=== PATIENT | male | born 1975 | race Caucasian/White ===

== ENCOUNTER → 2023-02-01 08:09 | Outpatient (BNVA) | payer OTHER, SELFPAY | PROVIDERS: Visit Provider Internal Medicine | DX: S01.01XA Laceration without foreign body of scalp, initial encounter (principal); W22.09XA Striking against other stationary object, initial encounter; W11.XXXA Fall on and from ladder, initial encounter | CPT/HCPCS: 99202; 99212 ==

== ENCOUNTER → 2023-11-25 08:55 | Outpatient (BNVA) | payer OTHER, SELFPAY | PROVIDERS: Visit Provider Physician Assistant Medical | DX: S39.012A Strain of muscle, fascia and tendon of lower back, initial encounter (principal); X50.0XXA Overexertion from strenuous movement or load, initial encounter | CPT/HCPCS: 99203 ==

== ENCOUNTER → 2023-11-28 11:28 | Outpatient (BNVA) | payer OTHER, SELFPAY | PROVIDERS: Visit Provider Physician Assistant Medical | DX: S39.012A Strain of muscle, fascia and tendon of lower back, initial encounter (principal); X50.0XXA Overexertion from strenuous movement or load, initial encounter | CPT/HCPCS: 99213 ==

== ENCOUNTER → 2023-12-23 10:58 | Outpatient (BNVA) | payer OTHER, SELFPAY | PROVIDERS: Visit Provider Physician Assistant Medical | DX: S39.012D Strain of muscle, fascia and tendon of lower back, subsequent encounter (principal); X50.0XXD Overexertion from strenuous movement or load, subsequent encounter | CPT/HCPCS: 99213 ==

== ENCOUNTER → 2024-01-13 10:48 | Outpatient (BNVA) | payer OTHER, SELFPAY | PROVIDERS: Visit Provider Physician Assistant Medical | DX: M79.604 Pain in right leg (principal); M54.50 Low back pain, unspecified | CPT/HCPCS: 99213 ==

== ENCOUNTER → 2024-02-03 09:19 | Outpatient (BNVA) | payer OTHER, SELFPAY | PROVIDERS: Visit Provider Internal Medicine | DX: S39.012D Strain of muscle, fascia and tendon of lower back, subsequent encounter (principal); X50.0XXD Overexertion from strenuous movement or load, subsequent encounter | CPT/HCPCS: 99213 ==

== ENCOUNTER 2024-02-13 10:01 | Outpatient (AMB) | payer OTHER, SELFPAY ==
[2024-02-13 10:14] VITALS: BP 134/86; PULSE 104; O2SAT 98
--- NOTE | 2024-02-13 10:14 | A.OFFVIS_ITS ---
Vital Signs 02/13/24 10:14 Weight 174 lb BP 134/86 Blood Pressure Location Rt brachial Position Sitting Pulse 104 H Pulse Source Pulse Oximeter Pulse Oximetry (%) 98 Oxygen Delivery Method Room Air Intake Visit Reasons: Right side low back pain Allergies Bee stings Allergy (Unknown, Uncoded 02/13/24 10:14) anaphylaxis Medication List - Last Reconciled 02/13/24 by Chelsea Kong tamsulosin 0.4 mg PO DAILY HPI Comments Details: Alejandro is a very pleasant 48-year-old male who presents the office today for evaluation and management of his right lower back Recent MRI reviewed, results as per below He has been suffering with this pain for 3 months. Injured at work, he was bringing a ladder down from the top of his work van Endorses pain over right PSIS with occasional radiation down the right thigh. Pain is worse with sitting for extended period of time, standing for extended period time and climbing stairs or ladder Pain improves with frequent position changes Pain today is rated as a 3/10 He completed physical therapy 2 weeks ago. States he did get some relief but ultimately stopped noticing benefit. He continues with home exercise program. Has tried Tylenol, ibuprofen, heat all without extended relief of his pain Denies red flag symptoms including new loss of bowel, bladder or saddle anesth esia. Denies lower extremity weakness, numbness In terms of muscle damage condition is described as aching Pain is negatively impacting patient's enjoyment of life, general activity, working, recreational activity Denies current use of anticoagulant Denies implantable devices, pacemaker defibrillator Review of Systems Const All systems reviewed & are unremarkable except as noted in HPI and below Physical Exam Vital Signs: Last Vital Signs Pulse 104 H 02/13/24 10:14 BP 134/86 02/13/24 10:14 Pulse Ox 98 02/13/24 10:14 Oxygen Delivery Method Room Air 02/13/24 10:14 General: awake, alert, oriented. Answers questions appropriately. Fully engaged in examination. Skin: warm, dry, intact HEENT: Normocephalic. Hearing intact. Cardiac: External chest normal in appearance. Respiratory: No cough, audible wheezing or stridor. Abdomen: without gross distension. MS: No obvious swelling or deformities. Able to stand on bilateral tiptoes and bilateral heels.? Able to transition from sit to stand unassisted. Ambulates with bilaterally normal heel strike and toe off Nontender over midline lumbar vertebrae Tenderness over right PSIS KELSEY positive on the right Gaenslen positive the right Thigh thrust positive the right SLR negative bilaterally Neurological: Oriented to person, place, time and situation. Thought process intact. No gait abnormalities appreciated. Psychiatric: Appropriate mood and affect. Good judgment and insight. Results Reviewed Results Reviewed: 01/28/24 FINDINGS: There is normal alignment of lumbar vertebral bodies. The vertebral bodies are of normal height and signal intensity. There is mild loss of intervertebral disc space height and loss of normal T2 hyperintensity of the L5-S1 disc material. The remaining intervertebral disc spaces are maintained. No acute paraspinal abnormality is identified. Conus and cauda equina of normal appearance. Conus tip L1. Examination through the L1-L2, L2-L3, L3-L4 and L4-L5 intervertebral levels without central stenosis or foraminal narrowing. Examination through the L5-S1 intervertebral level revealing a small posterior disc osteophyte with a leftward predominance. There is no central minimal LEFT foraminal narrowing. No significant RIGHT foraminal narrowing. IMPRESSION: No findings of lumbar fracture or listhesis. There is mild loss of intervertebral disc space height and loss of normal T2 hyperintensity of the L5-S1 disc material. L5-S1 intervertebral level revealing a small posterior disc osteophyte with a leftward predominance. Minimal LEFT foraminal narrowing. No significant central stenosis or RIGHT foraminal narrowing. Assessment & Plan Assessment & Plan (1) Sacroiliac joint dysfunction of right side: Code(s): M53.3 - Sacrococcygeal disorders, not elsewhere classified Category: Medical Plan Alejandro presented to the office today for evaluation management of his chronic right lower back pain History, physical exam and provocative testing consistent with right sacroiliac joint dysfunction Patient has exhausted conservative therapy including PT, home exercise program, Tylenol, nonsteroidal anti-inflammatory medications, heat all without improvement of symptoms Discussed options for treatment including diagnostic interventional testing, steroid injections, peripheral nerve stimulation with Sprint, RFA and more permanent neuromodulation. Will schedule for fluoroscopy guided diagnostic right sacroiliac joint injection with local anesthetic. All questions and concerns have been answered and patient agrees with the plan. Follow up after injections and sooner if needed. Coding Level of Care Code New Pt Level 4 (16234) Complex EM visit Add On G2211 Diagnoses Sacroiliac joint dysfunction of right side M53.3
== END 2024-02-13 10:44 | disposition home or self-care (01) ==
PROVIDERS: Visit Provider Registered Nurse Emergency
DX: M53.3 Sacrococcygeal disorders, not elsewhere classified (principal)
CPT/HCPCS: 99204; G2211

== ENCOUNTER → 2024-02-13 10:01 | Outpatient (BNVA) | payer OTHER, SELFPAY | PROVIDERS: Visit Provider Registered Nurse Emergency | DX: M53.3 Sacrococcygeal disorders, not elsewhere classified (principal) | CPT/HCPCS: 99202 ==

== ENCOUNTER → 2024-02-24 09:32 | Outpatient (BNVA) | payer OTHER, SELFPAY | PROVIDERS: Visit Provider Physician Assistant Medical | DX: S39.012D Strain of muscle, fascia and tendon of lower back, subsequent encounter (principal); X50.0XXD Overexertion from strenuous movement or load, subsequent encounter; M25.78 Osteophyte, vertebrae; M46.1 Sacroiliitis, not elsewhere classified | CPT/HCPCS: 99213 ==

== ENCOUNTER → 2024-03-17 15:32 | Outpatient (BNVA) | payer OTHER, SELFPAY | PROVIDERS: Visit Provider Physician Assistant Medical | DX: M46.1 Sacroiliitis, not elsewhere classified (principal) | CPT/HCPCS: 99213 ==

== ENCOUNTER → 2024-03-20 14:32 | Outpatient (BNVA) | payer OTHER, SELFPAY | PROVIDERS: Visit Provider Physician Assistant Medical | DX: M46.1 Sacroiliitis, not elsewhere classified (principal) | CPT/HCPCS: 99213 ==

== ENCOUNTER → 2024-03-25 14:29 | Outpatient (BNVA) | payer OTHER, SELFPAY | PROVIDERS: Visit Provider Physician Assistant Medical | DX: M99.04 Segmental and somatic dysfunction of sacral region (principal) | CPT/HCPCS: 99213 ==

== ENCOUNTER → 2024-03-27 14:23 | Outpatient (BNVA) | payer OTHER, SELFPAY | PROVIDERS: Visit Provider Physician Assistant Medical | DX: M99.04 Segmental and somatic dysfunction of sacral region (principal) | CPT/HCPCS: 99213 ==

== ENCOUNTER → 2024-03-31 14:30 | Outpatient (BNVA) | payer OTHER, SELFPAY | PROVIDERS: Visit Provider Physician Assistant Medical | DX: M46.1 Sacroiliitis, not elsewhere classified (principal) | CPT/HCPCS: 99213 ==

== ENCOUNTER 2024-04-07 06:09 | Outpatient (REF) | payer OTHER, SELFPAY | END 2024-04-07 06:10 | disposition home or self-care (01) | LOC: CF 06:09 | PROVIDERS: Visit Provider Anesthesiology | DX: M53.3 Sacrococcygeal disorders, not elsewhere classified (principal) | CPT/HCPCS: 27096; J2003; J2795; Q9967 ==

== ENCOUNTER 2024-04-07 08:26 | Outpatient (AMB) | payer OTHER, SELFPAY ==
--- OUTSIDE RECORDS SUMMARY | 2024-04-07 08:27 | XMS_ITS | Continuity of Care Document ---
Author Organization [facility] [address] Address [address] [place] [address]- Care Team Providers Care Wheel Presser Name Role Phone Not on Staff, PCP Primary Care Physician Unavail able Encounter [facility] Date(s): 10/12/21 - 11/11/21 [facility] [address] [place] [address]- Allergies, Adverse Reactions, Alerts Substance Reaction Severity Status Bee Stings Active Medications Zofran 4 mg oral tablet 1 tablet = 4 mg, By Mouth, Every 8 hours, PRN Nausea & Vomiting, # 20 tablet, 0 Refills, Maintenance, 05/27/17 23:03:18, Tablet Start Date: 05/27/17 Stop Date: 06/06/17 Status: Ordered Problem List Condition Effective Dates Status Health Status Inform ant Attention deficit disorder ( ADD) in adult(Confirmed) Active Major depressive disorder, r ecurrent episode, moderate with anxious distress(Confirmed) Active Social History Social History Type Response Smoking Status 5-9 cigarettes (betw een 1/4 to 1/2 pack)/day in last 30 days; Use: Vapes entered on: 08/25/18 Sex
--- NOTE | 2024-04-07 08:35 | MHC.OFFVIS ---
Vital Signs 04/07/24 08:55 04/07/24 09:28 BP 137/84 145/88 H Blood Pressure Location Lt brachial Lt brachial Position Sitting Sitting Pulse 91 67 Pulse Source Pulse Oximeter Pulse Oximeter Pulse Oximetry (%) 99 100 Oxygen Delivery Method Room Air Room Air Intake Visit Reasons: RIGHT DIAGNOSTIC SIJ INJECTION Allergies Bee stings Allergy (Unknown, Uncoded 02/13/24 10:14) anaphylaxis Physical Exam Vital Signs: Last Vital Signs Pulse 67 04/07/24 09:28 BP 145/88 H 04/07/24 09:28 Pulse Ox 100 04/07/24 09:28 Oxygen Delivery Method Room Air 04/07/24 09:28 Assessment & Plan Assessment & Plan (1) Sacroiliac joint dysfunction of right side: Code(s): M53.3 - Sacrococcygeal disorders, not elsewhere classified Category: Medical Plan Right diagnostic sacroiliac joint injection Informed consent was explained thoroughly to the patient.? All questions about benefits and risks for the procedure were answered. Patient came to the operating room and was positioned prone on the operating table with the pillow under the pelvis.? The lower back and buttocks of the patient were prepped with ChloraPrep prepped and draped with sterile utility towels.? Sterilely draped C-arm was brought over the operating field and sq picture of patient's pelvis was demonstrated on the screen.? For the right joint tilting C-arm contralateral to the site of the joint the most posterior portion of the joints was superimposed with anterior silhouette of the joint.? Skin was injected in the projection of the joint slightly medial to the location of the joint with 25 gauge 1/2 inch needle using local lidocaine 2% . After that 22 gauge 3 and 1/2 inch needle was driven to the right joint in tunnel vision fashion.? When needle entered the joint capsule injection of the contrast was performed demonstrating intra-articular and minimally periarticular spread of the contrast.? After that 5 cc. of ropivacaine 0.5% was injected into the right joint.? Upon completion of the injections the needles were removed .? Sterile dressing was applied.? Upon completion of the injection patient was taken outside of the operating room to the recovery room where recovered uneventful Orders: Orders FL guidance in treatment room Today M53.3 - Sacrococcygeal disorders, not elsewhere classified Coding Level of Care Code Procedure Only Diagnoses Sacroiliac joint dysfunction of right side M53.3
[2024-04-07 08:55] VITALS: BP 137/84; PULSE 91; O2SAT 99
[2024-04-07 09:28] VITALS: BP 145/88; PULSE 67; O2SAT 100
== END 2024-04-07 09:32 | disposition home or self-care (01) ==
LOC: HO.PMCPRC 08:26
PROVIDERS: Visit Provider Anesthesiology
DX: M53.3 Sacrococcygeal disorders, not elsewhere classified (principal)
CPT/HCPCS: 27096

== ENCOUNTER 2024-04-10 12:52 | Outpatient (AMB) | payer OTHER, SELFPAY ==
--- NOTE | 2024-04-10 12:58 | A.OFFVIS_ITS ---
Vital Signs 04/10/24 13:03 Weight 176 lb BP 138/87 Blood Pressure Location Lt brachial Position Sitting Pulse 71 Pulse Source Pulse Oximeter Pulse Oximetry (%) 98 Oxygen Delivery Method Room Air Intake Visit Reasons: RIGHT DIAGNOSTIC SIJ INJECTION Intake Note: Pain today 09/12 Spa Consultant Required: No Accompanied by: Self / Same As Patient Allergies Bee stings Allergy (Unknown, Uncoded 02/13/24 10:14) anaphylaxis HPI Comments Details: Patient presents back to the office today for follow-up, 3 days status post diagnostic right sacroiliac joint injection He reports 75% pain relief since the injection with improvement in functional ability Reports he is able to get up and move around better with less pain. Denies any untoward effects of the injection with does state it was uncomfortable.. He would like to proceed with therapeutic injection, he would like Ativan for this injection. Prior: Alejandro is a very pleasant 48-year-old male who presents the office today for evaluation and management of his right lower back Recent MRI reviewed, results as per below He has been suffering with this pain for 3 months. Injured at work, he was bringing a ladder down from the top of his work van Endorses pain over right PSIS with occasional radiation down the right thigh. Pain is worse with sitting for extended period of time, standing for extended period time and climbing stairs or ladder Pain improves with frequent position changes Pain today is rated as a 3/10 He completed physical therapy 2 weeks ago. States he did get some relief but ultimately stopped noticing benefit. He continues with home exercise program. Has tried Tylenol, ibuprofen, heat all without extended relief of his pain Denies red flag symptoms including new loss of bowel, bladder or saddle anesthesia. Denies lower extremity weakness, numbness In terms of muscle damage condition is described as aching Pain is negatively impacting patient's enjoyment of life, general activity, working, recreational activity Denies current use of anticoagulant Denies implantable devices, pacemaker defibrillator Review of Systems Const All systems reviewed & are unremarkable except as noted in HPI and below Physical Exam Vital Signs: Last Vital Signs Pulse 71 04/10/24 13:03 BP 138/87 04/10/24 13:03 Pulse Ox 98 04/10/24 13:03 Oxygen Delivery Method Room Air 04/10/24 13:03 General: awake, alert, oriented. Answers questions appropriately. Fully engaged in examination. Skin: warm, dry, intact HEENT: Normocephalic. Hearing intact. Cardiac: External chest normal in appearance. Respiratory: No cough, audible wheezing or stridor. Abdomen: without gross distension. MS: No obvious swelling or deformities. Able to transition from sit to stand unassisted. Ambulates with bilaterally normal heel strike and toe off Neurological: Oriented to person, place, time and situation. Thought process intact. No gait abnormalities appreciated. Psychiatric: Appropriate mood and affect. Good judgment and insight. Results Reviewed Results Reviewed: 01/28/24 FINDINGS: There is normal alignment of lumbar vertebral bodies. The vertebral bodies are of normal height and signal intensity. There is mild loss of intervertebral disc space height and loss of normal T2 hyperintensity of the L5-S1 disc material. The remaining intervertebral disc spaces are maintained. No acute paraspinal abnormality is identified. Conus and cauda equina of normal appearance. Conus tip L1. Examination through the L1-L2, L2-L3, L3-L4 and L4-L5 intervertebral levels without central stenosis or foraminal narrowing. Examination through the L5-S1 intervertebral level revealing a small posterior disc osteophyte with a leftward predominance. There is no central minimal LEFT foraminal narrowing. No significant RIGHT foraminal narrowing. IMPRESSION: No findings of lumbar fracture or listhesis. There is mild loss of intervertebral disc space height and loss of normal T2 hyperintensity of the L5-S1 disc material. L5-S1 intervertebral level revealing a small posterior disc osteophyte with a leftward predominance. Minimal LEFT foraminal narrowing. No significant central stenosis or RIGHT foraminal narrowing. Assessment & Plan Assessment & Plan (1) Sacroiliac joint dysfunction of right side: Code(s): M53.3 - Sacrococcygeal disorders, not elsewhere classified Category: Medical Plan Alejandro presented to the office today for follow-up, 3 days status post diagnostic right sacroiliac joint injection He reports 75% pain relief with improvement in functional mobility since the procedure. Patient has exhausted conservative therapy including PT, home exercise program, Tylenol, nonsteroidal anti-inflammatory medications, heat all without improvement of symptoms Will schedule for fluoroscopy guided therapeutic right sacroiliac joint injection with local anesthetic. Will send Ativan, 1 mg tablet to take 30 minutes prior to arrival for the procedure per patient request. All questions and concerns have been answered and patient agrees with the plan. Follow up after injection, sooner if needed. Coding Level of Care Code Est Pt Level 3 (63978) Complex EM visit Add On G2211 Diagnoses Sacroiliac joint dysfunction of right side M53.3
[2024-04-10 13:03] VITALS: BP 138/87; PULSE 71; O2SAT 98
== END 2024-04-10 13:55 | disposition home or self-care (01) ==
PROVIDERS: Visit Provider Registered Nurse Emergency
DX: M53.3 Sacrococcygeal disorders, not elsewhere classified (principal)
CPT/HCPCS: 99213; G2211

== ENCOUNTER → 2024-04-10 12:52 | Outpatient (BNVA) | payer OTHER, SELFPAY | PROVIDERS: Visit Provider Registered Nurse Emergency | DX: M53.3 Sacrococcygeal disorders, not elsewhere classified (principal); Z98.890 Other specified postprocedural states | CPT/HCPCS: 99212 ==

== ENCOUNTER → 2024-04-13 15:00 | Outpatient (BNVA) | payer OTHER, SELFPAY | PROVIDERS: Visit Provider Physician Assistant Medical | DX: M46.1 Sacroiliitis, not elsewhere classified (principal) | CPT/HCPCS: 99213 ==

== ENCOUNTER → 2024-05-11 13:18 | Outpatient (BNVA) | payer OTHER, SELFPAY | PROVIDERS: Visit Provider Physician Assistant Medical | DX: M46.1 Sacroiliitis, not elsewhere classified (principal) | CPT/HCPCS: 99213 ==

== ENCOUNTER 2024-07-07 06:26 | Outpatient (REF) | payer OTHER, SELFPAY ==
--- NOTE | ~2024-07-07 | FL_ITS ---
EXAMINATION: FL GUIDANCE ONLY HISTORY: M53.3 - Sacrococcygeal disorders, not elsewhere classified COMPARISON: None available. TECHNIQUE: Fluoroscopy time: 0.1 minutes. Cumulative Dose: 1.72 mGy. DAP: 0.0299 mGym2 Images: 2. FINDINGS: Images demonstrate a needle and contrast material in the region of the right sacroiliac joint. FL/FL guidance in treatment room IMPRESSION: Fluoroscopy during procedure. Please see procedure report for additional information. Electronically signed by: Paulo Holt MD 07/10/2024 08:56 AM CLAUDIA
== END 2024-07-07 06:27 | disposition home or self-care (01) ==
LOC: CF 06:26
PROVIDERS: Visit Provider Anesthesiology
DX: M53.3 Sacrococcygeal disorders, not elsewhere classified (principal)
CPT/HCPCS: 27096; J2003; J2795; J3301; Q9967

== ENCOUNTER 2024-07-07 08:43 | Outpatient (AMB) | payer OTHER, SELFPAY ==
--- NOTE | 2024-07-07 08:43 | MHC.OFFVIS ---
Vital Signs 07/07/24 08:50 07/07/24 09:12 BP 130/78 141/82 H Blood Pressure Location Lt brachial Lt brachial Position Sitting Sitting Pulse 73 78 Pulse Source Pulse Oximeter Pulse Oximeter Pulse Oximetry (%) 100 100 Oxygen Delivery Method Room Air Room Air Comment Pre-Op Post-Op Intake Visit Reasons: RIGHT THERAPEUTIC SIJ INJECTION/ATIVAN REQ Allergies Bee stings Allergy (Unknown, Uncoded 02/13/24 10:14) anaphylaxis Physical Exam Vital Signs: Last Vital Signs Pulse 78 07/07/24 09:12 BP 141/82 H 07/07/24 09:12 Pulse Ox 100 07/07/24 09:12 Oxygen Delivery Method Room Air 07/07/24 09:12 Assessment & Plan Assessment & Plan (1) Sacroiliac joint dysfunction of right side: Code(s): M53.3 - Sacrococcygeal disorders, not elsewhere classified Category: Medical Plan Right therapeutic sacroiliac joint injection Informed consent was explained thoroughly to the patient.? All questions about benefits and risks for the procedure were answered. Patient came to the operating room and was positioned prone on the operating table with the pillow under the abdomen. The lower back and buttocks of the patient were prepped with ChloraPrep prepped and draped with sterile utility towels.? C-arm was brought over the operating field and sq picture of patient's pelvis was demonstrated on the screen.? For the right joint tilting C-arm contralateral to the site of the joint the most posterior portion of the joints was superimposed with anterior silhouette of the joint.? Skin was injected in the projection of the joint slightly medial to the location of the joint with 25 gauge 1/2 inch needle using local lidocaine 2% .After that 22 gauge 3 and 1/2 inch needle was driven to the right joint in tunnel vision fashion.? When needle entered the joint capsule injection of the contrast was performed demonstrating intra-articular and minimally periarticular spread of the contrast.? After that 5 cc. of ropivacaine 0.5% mixed with Kenalog 40 mg was injected into the right joint.? Upon completion of the injections the needles were removed .? Sterile dressing was applied.? Upon completion of the injection patient was taken outside of the operating room to the recovery room where he recovered uneventfuly. Orders: Orders FL guidance in treatment room Today M53.3 - Sacrococcygeal disorders, not elsewhere classified Coding Level of Care Code Procedure Only Diagnoses Sacroiliac joint dysfunction of right side M53.3
[2024-07-07 08:50] VITALS: BP 130/78; PULSE 73; O2SAT 100
[2024-07-07 09:12] VITALS: BP 141/82; PULSE 78; O2SAT 100
--- OUTSIDE RECORDS SUMMARY | 2024-07-07 09:20 | XMS_ITS | Clinical Summary ---
Author Organization [facility] Address [address] [place] [address] Phone Care Team Providers Care Pest Control Technician Name Role Phone Tamy Haemed MD Primary Care Provider [phone] Allergies Active Allergy Reactions Criticality Noted Date Comments Bee Venom Protein (Honey Bee) 2023 Medications tamsulosin (FLOMAX) 0.4 mg 24 hr capsule Take 1 capsule (0.4 mg total) by mouth 1 (one) time each day. 10/29/2023 Active medical marijuana STOCK CONTROL CLERK med 1 each if needed. Active Surgical History Surgery Date Site/Laterality Comments OTHER SURGICAL HISTORY PROCEDURE: DENIES PREVIOUS SURGERY Medical History Medical History Date Comments Patient denies medical problems DX:Patient denies medical problems Anxiety Family History Medical History Relation Name Comments Diabetes Father No Known Problems Maternal Grandfather No Known Problems Maternal Grandmother No Known Problems Mother No Known Problems Paternal Grandfather No Known Problems Paternal Grandmother Other: Thyroid Cancer Sister No Known Problems Son 1 Relation Name Status Comments Father Alive Maternal Grandfather Maternal Grandmother Mother Alive Paternal Grandfather Paternal Grandmother Sister Alive Son 1 Alive Son 2 Alive Stepson, Not bi ologicaly related Social History Tobacco Use Types Packs/Day Years Used Date Smoking Tobacco: Former Cigarettes Q uit: 05/06/2017 Smokeless Tobacco: Never Alcohol Use Standard Drinks/Week Comments Yes 0 (1 standard drink = 0.6 oz pur e alcohol) Interpersonal Safety Answer Date Record ed Physical Abuse 03/18/2024 Verbal Abuse 03/18/2024 Sex and Gender Information Value Date Recorded Sex Assigned at Male 03/18/2024 1:20 PM EST Legal Sex Male 11:41 AM EDT Gender Identity Male 03/18/2024 1:20 PM EST Sexual Orientation Straight 03/18/2024 1: 20 PM EST Obstetrics History Last Filed Vital Signs Vital Sign Reading Time Taken Comments Blood Pressure 119/83 03/18/2024 2:47 PM EST Pulse 85 03/18/2024 2:47 PM EST Temperature 36.4 ??C (97.6 ??F) 03/18/2024 2:27 PM ES T Respiratory Rate 20 03/18/2024 2:47 PM EST Oxygen Saturation 99% 03/18/2024 2:47 PM EST Inhaled Oxygen Concentration - - Weight 79.4 kg (175 lb) 03/18/2024 1:41 PM EST Height 177.8 cm (5' 10 ) 03/18/2024 1:41 PM EST Body Mass Index 25.11 03/18/2024 1:41 PM EST Plan of Treatment Health Maintenance Due Date Last Done Comments Hepatitis B Vaccines (1 of 3 - 19+ 3-dose series) 12/02/1995 COVID-19 Vaccine (2023-2 5 season) 2024 Influenza Vaccine (#1) 2024 Cholesterol Screening (Lipid Panel) 02/13/2024 Depression Screening 02/13/2024 HIV Screening 02/13/2024 Hepatitis C Screening 02/13/2024 Medicare Annual Wellness Visit 02/13/2024 Social Influencers of Health Screening 02/13/2024 DTaP,Tdap,and Td Vaccines (3 - Td or Tdap) 01/24/2033 01/24/2023, 12/23/2018 Colorectal Cancer Screening: Colonoscopy 03/18/2034 03/18/2024 HIB Vaccines Aged Out No longer eligi ble based on patient's age to complete this topic HPV Vaccines Aged Out No longer eligi ble based on patient's age to complete this topic Hepatitis A Vaccines Aged Out No long er eligible based on patient's age to complete this topic IPV Vaccines Aged Out No longer eligi ble based on patient's age to complete this topic MMR Vaccines Aged Out No longer eligi ble based on patient's age to complete this topic Meningococcal ACWY Vaccine Aged Out N o longer eligible based on patient's age to complete this topic Meningococcal B Vacine Aged Out No lo nger eligible based on patient's age to complete this topic Pneumococcal Vaccine: Pediatrics (0 to 5 Years) and At-Risk Patients (6 to 64 Years) Aged Out No longer eligible b ased on patient's age to complete this topic RSV Immunization Patients Under 20 months Aged Out No longer eligible b ased on patient's age to complete this topic Varicella Vaccines Aged Out No longer eligible based on patient's age to complete this topic Procedures Procedure Name Priority Date/Time Associated Diagnosis Comments COLONOSCOPY Routine 03/18/2024 2:26 PM EST Special screening for malignant neoplasms, colon from Last 3 Months or Most Recently Relevant to Health Maintenance Results * COLONOSCOPY Anesthesia - MAC; [facility] ENDOSCOPY (03/18/2024 2:26 PM EST) Anatomical Region Laterality Modality Endoscopy 03/18/2024 2:10 PM EST Impressions 03/18/2024 2:28 PM EST - Internal hemorrhoids. ? - The examination was otherwise normal. ? - No specimens collected. Recommendation: ?- Discharge patient to home. ? - Repeat colonoscopy in 10 years for screening ? purposes. Narrative 03/18/2024 2:28 PM EST [facility] GI Patient Name: Alejandro Trujillo Procedure Date: 03/18/2024 2:10 PM Date of : 1975 Age: 48 Gender: Male Note Status: Finalized Attending MD: Ronny Gregg MD, Procedure Date No Time: 03/18/2024 Procedure: ? Colonoscopy Indications: ? Screening for colorectal malignant neoplasm Providers: ? Ronny Gregg MD Referring MD: ?Ronny Gregg MD Medicines: ? Monitored Anesthesia Care Complications: ? No immediate complications. Estimated Blood Loss: ? Estimated blood loss: none. Procedure: ? Pre-Anesthesia Assessment: ? - Prior to the procedure, a History and Physical was ? performed, and patient medications and allergies were ? reviewed. The patient is competent. The risks and ? benefits of the procedure and the sedation options and ? risks were discussed with the patient. All questions ? were answered and informed consent was obtained. ? Patient identification and proposed procedure were ? verified by the physician, the nurse, the solar hot water installer ? and the sonar technician in the pre-procedure area in the ? endoscopy suite. Mental Status Examination: alert and ? oriented. Airway Examination: normal oropharyngeal ? airway and neck mobility. Respiratory Examination: ? clear to auscultation. CV Examination: normal. ? Prophylactic Antibiotics: The patient does not require ? prophylactic antibiotics. Prior Anticoagulants: The ? patient has taken no anticoagulant or antiplatelet ? agents. ASA Grade Assessment: II - A patient with mild ? systemic disease. After reviewing the risks and ? benefits, the patient was deemed in satisfactory ? condition to undergo the procedure. The anesthesia ? plan was to use monitored anesthesia care (MAC). ? Immediately prior to administration of medications, ? the patient was re-assessed for adequacy to receive ? sedatives. The heart rate, respiratory rate, oxygen ? saturations, blood pressure, adequacy of pulmonary ? ventilation, and response to care were monitored ? throughout the procedure. The physical status of the ? patient was re-assessed after the procedure. ? After I obtained informed consent, the scope was ? passed under direct vision. Throughout the procedure, ? the patient's blood pressure, pulse, and oxygen ? saturations were monitored continuously. The Olympus ? Colonoscope was introduced through the anus and ? advanced to the cecum, identified by appendiceal ? orifice and ileocecal valve. The colonoscopy was ? performed without difficulty. The patient tolerated ? the procedure well. The quality of the bowel ? preparation was excellent. Findings: ?The perianal and digital rectal examinations were ? normal. ? Internal hemorrhoids were found during retroflexion. ? The hemorrhoids were Grade I (internal hemorrhoids ? that do not prolapse). ? The exam was otherwise without abnormality. Procedure Code(s): ? --- Professional --- ? G0121, Colorectal cancer screening; colonoscopy on ? individual not meeting criteria for high risk Diagnosis Code(s): ? --- Professional --- ? Z12.11, Encounter for screening for malignant neoplasm ? of colon CPT copyright 2020 [employer] [place] [employer]. All rights reserved. The codes documented in this report are preliminary and upon certified coder review may be revised to meet current compliance requirements. Ronny Gregg MD 03/18/2024 2:27:58 PM This report has been signed electronically.Ronny Gregg MD Number of Addenda: 0 Note Initiated On: 03/18/2024 2:10 PM Scope Withdrawal Time: 0 hours 7 minutes 2 seconds Scope In: 2:17:39 PM Scope Out: 2:26:18 PM ? Endoscopy Department at [facility] - [address] [place] [address], ? [place] [address] Procedure Note Ronny Gregg MD - 03/18/2024 [facility] GI Patient Name: Alejandro Trujillo Procedure Date: 03/18/2024 2:10 PM Date of : 1975 Age: 48 Gender: Male Note Status: Finalized Attending MD: Ronny Gregg MD, Procedure Date No Time: 03/18/2024 Procedure: Colonoscopy Indications: Screening for colorectal malignant neoplasm Providers: Ronny Gregg MD Referring MD: Ronny Gregg MD Medicines: Monitored Anesthesia Care Complications: No immediate complications. Estimated Blood Loss: Estimated blood loss: none. Procedure: Pre-Anesthesia Assessment: - Prior to the procedure, a History and Physicalwas performed, and patient medications and allergieswere reviewed. The patient is competent. The risks and benefits of the procedure and the sedation optionsand risks were discussed with the patient. Allquestions were answered and informed consent was obtained. Patient identification and proposed procedure were verified by the physician, the nurse, theanesthetist and the sonar technician in the pre-procedure area in the endoscopy suite. Mental Status Examination: alertand oriented. Airway Examination: normal oropharyngeal airway and neck mobility. Respiratory Examination: clear to auscultation. CV Examination: normal. Prophylactic Antibiotics: The patient does notrequire prophylactic antibiotics. Prior Anticoagulants: The patient has taken no anticoagulant or antiplatelet agents. ASA Grade Assessment: II - A patient withmild systemic disease. After reviewing the risks and benefits, the patient was deemed in satisfactory condition to undergo the procedure. The anesthesia plan was to use monitored anesthesia care (MAC). Immediately prior to administration of medications, the patient was re-assessed for adequacy to receive sedatives. The heart rate, respiratory rate, oxygen saturations, blood pressure, adequacy of pulmonary ventilation, and response to care were monitored throughout the procedure. The physical status ofthe patient was re-assessed after the procedure. After I obtained informed consent, the scope was passed under direct vision. Throughout theprocedure, the patient's blood pressure, pulse, and oxygen saturations were monitored continuously. TheOlympus Colonoscope was introduced through the anus and advanced to the cecum, identified by appendiceal orifice and ileocecal valve. The colonoscopy was performed without difficulty. The patient tolerated the procedure well. The quality of the bowel preparation was excellent. Findings: The perianal and digital rectal examinations were normal. Internal hemorrhoids were found duringretroflexion. The hemorrhoids were Grade I (internal hemorrhoids that do not prolapse). The exam was otherwise without abnormality. Procedure Code(s): --- Professional --- G0121, Colorectal cancer screening; colonoscopy on individual not meeting criteria for high risk Diagnosis Code(s): --- Professional --- Z12.11, Encounter for screening for malignantneoplasm of colon CPT copyright 2020 [employer] [place] [employer]. All rights reserved. The codes documented in this report are preliminary and upon certified coder reviewmay be revised to meet current compliance requirements. Ronny Gregg MD 03/18/2024 2:27:58 PM This report has been signed electronically.Ronny Gregg MD Number of Addenda: 0 Note Initiated On: 03/18/2024 2:10 PM Scope Withdrawal Time: 0 hours 7 minutes 2 seconds Scope In: 2:17:39 PM Scope Out: 2:26:18 PM Endoscopy Department at [facility] - [address] [place], [place] [id number] IMPRESSION: - Internal hemorrhoids. - The examination was otherwise normal. - No specimens collected. Recommendation: - Discharge patient to home. - Repeat colonoscopy in 10 years for screening purposes. Ronny Gregg MD GI~PROCEDURE ORDERABLES Fin al Result from Last 3 Months or Most Recently Relevant to Health Maintenance Insurance HEIDI VIERA ([facility]) MEDICARE ADVANTAGE HEIDI Hernandez MD [facility] Care Teams Pest Control Technician Relationship Specialty Start Date End Date Tamy Hameed MD [address] [place] [id number] PCP - General 10/17/23
== END 2024-07-07 09:16 | disposition home or self-care (01) ==
LOC: HO.PMCPRC 08:43
PROVIDERS: Visit Provider Anesthesiology
DX: M53.3 Sacrococcygeal disorders, not elsewhere classified (principal)
CPT/HCPCS: 27096

== ENCOUNTER 2024-07-22 12:45 | Outpatient (AMB) | payer OTHER, SELFPAY ==
--- NOTE | 2024-07-22 12:50 | A.OFFVIS_ITS ---
Vital Signs 07/22/24 12:52 Height 5 ft 10 in Weight 177 lb BMI 25.4 BP 133/89 Blood Pressure Location Lt brachial Position Sitting Respiration 16 Pulse 89 Pulse Source Pulse Oximeter Pulse Oximetry (%) 98 Oxygen Delivery Method Room Air Intake Visit Reasons: RIGHT THERAPEUTIC SIJ INJECTION Produce Department Manager Required: No Allergies Bee stings Allergy (Unknown, Uncoded 07/22/24 12:53) anaphylaxis Medication List - Last Reconciled 07/22/24 by Shwetha Michelle LPN No Known Home Meds HPI Comments Details: Patient presents back to the office today for follow-up, 2 weeks status post right therapeutic sacroiliac joint injection He reports 80% pain relief with improvement in functional mobility Pain today 1/10. He reports on average pain is 1/10, the worst his pain has been over the last 2 weeks is a 2/10 Denies any untoward effects of the injection Prior: Patient presents back to the office today for follow-up, 3 days status post diagnostic right sacroiliac joint injection He reports 75% pain relief since the injection with improvement in functional ability Reports he is able to get up and move around better with less pain. Denies any untoward effects of the injection with does state it was unco mfortable.. He would like to proceed with therapeutic injection, he would like Ativan for this injection. Prior: Alejandro is a very pleasant 48-year-old male who presents the office today for evaluation and management of his right lower back Recent MRI reviewed, results as per below He has been suffering with this pain for 3 months. Injured at work, he was bringing a ladder down from the top of his work van Endorses pain over right PSIS with occasional radiation down the right thigh. Pain is worse with sitting for extended period of time, standing for extended period time and climbing stairs or ladder Pain improves with frequent position changes Pain today is rated as a 3/10 He completed physical therapy 2 weeks ago. States he did get some relief but ultimately stopped noticing benefit. He continues with home exercise program. Has tried Tylenol, ibuprofen, heat all without extended relief of his pain Denies red flag symptoms including new loss of bowel, bladder or saddle anesthesia. Denies lower extremity weakness, numbness In terms of muscle damage condition is described as aching Pain is negatively impacting patient's enjoyment of life, general activity, working, recreational activity Denies current use of anticoagulant Denies implantable devices, pacemaker defibrillator Review of Systems Const All systems reviewed & are unremarkable except as noted in HPI and below Physical Exam Vital Signs: Last Vital Signs Pulse 89 07/22/24 12:52 Resp 16 07/22/24 12:52 BP 133/89 07/22/24 12:52 Pulse Ox 98 07/22/24 12:52 Oxygen Delivery Method Room Air 07/22/24 12:52 BMI result Body Mass Index 25.4 General: awake, alert, oriented. Answers questions appropriately. Fully engaged in examination. Skin: warm, dry, intact HEENT: Normocephalic. Hearing intact. Cardiac: External chest normal in appearance. Respiratory: No cough, audible wheezing or stridor. Abdomen: without gross distension. MS: No obvious swelling or deformities. Able to transition from sit to stand unassisted. Ambulates with bilaterally normal heel strike and toe off Neurological: Oriented to person, place, time and situation. Thought process intact. No gait abnormalities appreciated. Psychiatric: Appropriate mood and affect. Good judgment and insight. Results Reviewed Results Reviewed: 01/28/24 FINDINGS: There is normal alignment of lumbar vertebral bodies. The vertebral bodies are of normal height and signal intensity. There is mild loss of intervertebral disc space height and loss of normal T2 hyperintensity of the L5-S1 disc material. The remaining intervertebral disc spaces are maintained. No acute paraspinal abnormality is identified. Conus and cauda equina of normal appearance. Conus tip L1. Examination through the L1-L2, L2-L3, L3-L4 and L4-L5 intervertebral levels without central stenosis or foraminal narrowing. Examination through the L5-S1 intervertebral level revealing a small posterior disc osteophyte with a leftward predominance. There is no central minimal LEFT foraminal narrowing. No significant RIGHT foraminal narrowing. IMPRESSION: No findings of lumbar fracture or listhesis. There is mild loss of intervertebral disc space height and loss of normal T2 hyperintensity of the L5-S1 disc material. L5-S1 intervertebral level revealing a small posterior disc osteophyte with a leftward predominance. Minimal LEFT foraminal narrowing. No significant central stenosis or RIGHT foraminal narrowing. Assessment & Plan Assessment & Plan (1) Sacroiliac joint dysfunction of right side: Code(s): M53.3 - Sacrococcygeal disorders, not elsewhere classified Category: Medical Plan Alejandro presented to the office today for follow-up, 2 weeks status post therapeutic right sacroiliac joint injection He reports 80% pain relief with improvement in functional mobility since the procedure. All questions and concerns have been answered and patient agrees with the plan. Follow up when pain returns, sooner if needed. Coding Level of Care Code Est Pt Level 3 (70385) Complex EM visit Add On G2211 Diagnoses Sacroiliac joint dysfunction of right side M53.3
[2024-07-22 12:52] VITALS: BP 133/89; PULSE 89; RESP 16; O2SAT 98; BMI 25.4
--- OUTSIDE RECORDS SUMMARY | 2024-07-22 15:05 | XMS_ITS | Clinical Summary ---
Author Organization [facility] Address [address] [place] [address] Phone Care Team Providers Care Agent Telegrapher Name Role Phone Tamy Hameed MD Primary Care Provider [phone] Allergies Active Allergy Reactions Criticality Noted Date Comments Bee Venom Protein (Honey Bee) 2023 Medications tamsulosin (FLOMAX) 0.4 mg 24 hr capsule Take 1 capsule (0.4 mg total) by mouth 1 (one) time each day. 10/29/2023 Active medical marijuana PASTRY SOUS CHEF med 1 each if needed. Active Surgical [...] Maintenance Results * COLONOSCOPY Anesthesia - MAC; [facility] ENDOSCOPY (03/18/2024 2:26 PM EST) Anatomical Region Laterality Modality Endoscopy 03/18/2024 2:10 PM EST Impressions 03/18/2024 2:28 PM EST - Internal hemorrhoids. ? - The examination was otherwise normal. ? - No specimens collected. Recommendation: ?- Discharge patient to home. ? - Repeat colonoscopy in 10 years for screening ? purposes. Narrative 03/18/2024 2:28 PM EST [facility] GI Patient Name: Alejandro Trujillo Procedure Date: [...] verified by the physician, the nurse, the guard lieutenant ? and the gem technician in the pre-procedure area in the [...] neoplasm ? of colon CPT copyright 2020 [employer]. All rights reserved. The codes documented in this report are preliminary and upon chairman president and chief executive officer review may be revised to meet current compliance requirements. Ronny Gregg MD 03/18/2024 2:27:58 PM This report has been signed electronically.Ronny Gregg MD Number of Addenda: 0 Note Initiated On: 03/18/2024 2:10 PM Scope Withdrawal Time: 0 hours 7 minutes 2 seconds Scope In: 2:17:39 PM Scope Out: 2:26:18 PM ? Endoscopy Department at [facility] - [address] [place] [address], ? [place] [address] Procedure Note Ronny Gregg MD - 03/18/2024 [facility] GI Patient Name: Alejandro Trujillo Procedure Date: [...] the physician, the nurse, theanesthetist and the gem technician in the pre-procedure area in the [...] for malignantneoplasm of colon CPT copyright 2020 [employer]. All rights reserved. The codes documented in this report are preliminary and upon chairman president and chief executive officer reviewmay be revised to meet current compliance requirements. Ronny Gregg MD 03/18/2024 2:27:58 PM This report has been signed electronically.Ronny Gregg MD Number of Addenda: 0 Note Initiated On: 03/18/2024 2:10 PM Scope Withdrawal Time: 0 hours 7 minutes 2 seconds Scope In: 2:17:39 PM Scope Out: 2:26:18 PM Endoscopy Department at [facility] - [address] [place], [place] [id number] IMPRESSION: - Internal hemorrhoids. - The examination was otherwise normal. - No specimens collected. Recommendation: - Discharge patient to home. - Repeat colonoscopy in 10 years for screening purposes. Ronny Gregg MD GI~PROCEDURE ORDERABLES Fin al Result from Last 3 Months or Most Recently Relevant to Health Maintenance Insurance HEIDI VIERA ([facility]) MEDICARE ADVANTAGE HEIDI [facility] Care Teams Agent Telegrapher Relationship Specialty Start Date End Date Tamy Hameed MD PCP - General 10/17/23
--- OUTSIDE RECORDS SUMMARY | 2024-07-22 15:05 | XMS_ITS ---
Author Name [facility] Organization Unknown Care Team Organization Name Specialty Phone Email Start Date End Da te [employer] Insurance 03/11/2021
== END 2024-07-22 13:07 | disposition home or self-care (01) ==
LOC: HO.PMC 12:46
PROVIDERS: Visit Provider Registered Nurse Emergency
DX: M53.3 Sacrococcygeal disorders, not elsewhere classified (principal)
CPT/HCPCS: 99213; G2211

== ENCOUNTER → 2024-07-22 12:45 | Outpatient (BNVA) | payer OTHER, SELFPAY | PROVIDERS: Visit Provider Registered Nurse Emergency | DX: M53.3 Sacrococcygeal disorders, not elsewhere classified (principal) | CPT/HCPCS: 99212 ==